=== PATIENT | female | born 1960 | race Caucasian/White ===

== ENCOUNTER 2016-12-30 11:01 | Day surgery (SDC) | payer MEDICARE ==
[~2016-12-30] VITALS: Ht 165.1 cm; Wt 81.6 kg
[~2016-12-30 11:01] MED LIST: COZAAR100 MG PO; ENULOSE10 G/15 ML PO; GLUCOPHAGE500 MG PO; HUMALOG MIX 75/23 ML SC; LASIX40 MG PO; NEURONTIN 300300 MG PO; POTASSIUM CHLO10 ME1 PO; PRILOSEC20 MG PO; TOPROL XL25 MG PO; XIFAXAN550 MG PO; ZOCOR40 MG PO; ZOLOFT25 MG PO
[2016-12-30 12:22] LABS: BASOPHILS 0.4 % (0.0-2.0); EOSINOPHILS 1.8 % (0-7); HEMATOCRIT 35.2 % (36.0-48.0); HEMOGLOBIN 11.7 g/dL (12-16); IMMATURE GRANULOCYTES 0.1 % (0-5); LYMPHOCYTES 21.4 % (15-50); MCH 28.4 pg (26.0-34.0); MCHC 33.2 g/dL (31.0-37.0); MCV 85.4 fL (80.0-100.0); MEAN PLATELET VOLUME 12.1 fL (7.4-10.4); MONOCYTES 6.6 % (2-11); NEUTROPHILS 69.7 % (40-80); RBC 4.12 10x6/uL (4.00-5.40); RDW 13.5 % (11.5-14.5); WBC 6.7 10x3/uL (4.8-10.8)
[2016-12-30] MEDS ORDERED: LEVEMIR100 U/M1 SQ (12:23)
[2016-12-30 12:35] VITALS: BP 187/91; Ht 165.1 cm; Wt 81.6 kg
[2016-12-30 12:39] LABS: PLATELET COUNT 85 10x3/uL (130-400)
[2016-12-30 12:40] LABS: APTT 27.6 SECONDS (22.8-39.4); INR 1.21 (0.85-1.17); PROTIME 15.2 SECONDS (11.6-15.0)
[2016-12-30 12:48] LABS: ALKALINE PHOSPHATASE 143 U/L (46-116); ALT (SGPT) 16 U/L (10-68); BILIRUBIN - TOTAL 1.57 mg/dL (0.2-1.3); CALC OSMOLALITY 281 mosm/kg (275-300); CALCIUM 8.6 mg/dL (8.5-10.1); CARBON DIOXIDE 22.9 mmol/L (21.0-32.0); CHLORIDE - SERUM 105 mmol/L (98-107); CREATININE - SERUM 0.8 mg/dL (0.6-1.3); POTASSIUM - SERUM 3.8 mmol/L (3.5-5.1); PROTEIN - SERUM 7.4 g/dL (6.4-8.2); SODIUM 140 mmol/L (136-145); UREA NITROGEN 15 mg/dL (7-18); eGFR NON AFRICAN AMERICAN 79 mL/min (90-120)
[2016-12-30 12:51] LABS: GLUCOSE 143 mg/dL (74-106)
[2016-12-30 13:16] LABS: PLATELET ESTIMATE DECREASED
--- NOTE | 2016-12-30 16:28 | NUR ---
1425 DC INSTS REVIEWED. VOICED UNDERSTANDING, RELEASED IN OWN WC.
--- NOTE | 2017-01-05 10:15 | OP ---
PATIENT NAME: NILDA LIRA MEDICAL RECORD: [id number] :62 LOCATION:[facility] ADMISSION DATE: SURGEON: JAYNE AVITIA DO DATE OF OPERATION: 12/30/2016 PROCEDURE: EGD with variceal band ligation. SCOPE: Olympus video gastroscope. MEDICATIONS: Propofol 300 mg IV per anesthesia. INDICATIONS FOR PROCEDURE: Dysphagia and gastroesophageal reflux disease. FINDINGS: Informed consent was given. The patient was made comfortable with the above medication. After reaching an adequate level of sedation by slow IV push, the patient was placed on her left side. The endoscope was then advanced under direct visualization through the mouth to the second portion of the duodenum. The upper esophagus appeared normal. There were grade III to IV esophageal varices present in the middle and distal third of the esophagus in segmented columns. Scope was advanced down into the stomach and retroflexed to view the cardia which appeared normal. There were no visualized varices within the fundus of the stomach. There was a single benign appearing fundic gland gastric polyp present in the fundus of the stomach. Scope was advanced down to the antrum and prepyloric region where the mucosa appeared normal. It was advanced into the bulb and second portion of the duodenum which appeared normal. The scope was then withdrawn and fitted a with a speed rocket scientist made by [employer]. The scope was advanced back down to the varices and 3 band ligation were performed successfully. The scope was then withdrawn from the patient. The patient tolerated the procedure well and there were no complications. IMPRESSION: 1. Grade III to IV esophageal varices, banded times 3. 2. Benign fundic gland polyps was seen. PLAN AND RECOMMENDATIONS: 1. Discharge home when recovering parameters are met. 2. Continue omeprazole, but increased to 40 mg daily. 3. Low sodium diet. 4. Repeat EGD in 4-6 weeks for continued treatment of esophageal varices, I feel that this is the cause of her dysphagia and should be treated until irradiation. TRANSINT:[id number] Voice Confirmation ID: [id number] DOCUMENT ID: [id number] JAYNE AVITIA DO at 1015 CC: [id number] DICTATION DATE: 12/30/16 1430 HERD TESTER: 12/30/164 [facility] 12/30/16 [facility] [address] [place] [address]
== END 2016-12-30 16:25 | disposition home or self-care (01) ==
LOC: D.OPS 11:01
PROVIDERS: Anesthesiology
DX: I85.00 Esophageal varices without bleeding (principal); R13.10 Dysphagia, unspecified; K21.9 Gastro-esophageal reflux disease without esophagitis

== ENCOUNTER → 2017-01-06 11:11 | Outpatient (CLI) | payer MEDICARE ==
[2016-12-30 12:35] VITALS: BMI 21.6
[~2017-01-06 11:11] MED LIST changes: +LEVEMIR100 U/M1 SQ
== END | disposition home or self-care (01) ==
LOC: D.NM 11:11
DX: R10.13 Epigastric pain (principal); R68.81 Early satiety; R14.0 Abdominal distension (gaseous)

== ENCOUNTER 2017-01-28 08:22 | Day surgery (SDC) | payer MEDICARE ==
[2017-01-28 10:01] LABS: ANION GAP 13.2 mmol/L (8-16); CALCIUM 8.9 mg/dL (8.5-10.1); CARBON DIOXIDE 27.7 mmol/L (21.0-32.0); CREATININE - SERUM 0.9 mg/dL (0.6-1.3); POTASSIUM - SERUM 3.9 mmol/L (3.5-5.1)
[2017-01-28 12:27] LABS: BASOPHILS 0.5 % (0-2); EOSINOPHILS 1.8 % (0-7); HEMATOCRIT 35.9 % (36.0-48.0); HEMOGLOBIN 11.5 g/dL (12-16); IMMATURE GRANULOCYTES 0.3 % (0-5); MCH 28.5 pg (26.0-34.0); MCV 89.1 fL (80.0-100.0); MONOCYTES 9.1 % (2-11); NEUTROPHILS 69.3 % (40-80); PLATELET COUNT 97 10x3/uL (130-400); RBC 4.03 10x6/uL (4.00-5.40); WBC 6.5 10x3/uL (4.8-10.8)
[2017-01-28 12:48] LABS: PLATELET ESTIMATE DECREASED
== END 2017-01-28 12:45 | disposition home or self-care (01) ==
LOC: D.OPS 08:22
PROVIDERS: Anesthesiology
DX: D12.4 Benign neoplasm of descending colon (principal); I10 Essential (primary) hypertension; Z95.1 Presence of aortocoronary bypass graft; K21.9 Gastro-esophageal reflux disease without esophagitis; E11.9 Type 2 diabetes mellitus without complications; Z01.812 Encounter for preprocedural laboratory examination

== ENCOUNTER → 2017-02-15 10:25 | Outpatient (CLI) | payer MEDICARE ==
[2017-01-28 09:15] VITALS: BMI 29.1
[2017-02-15 11:31] LABS: BASOPHILS 0.4 % (0-2); EOSINOPHILS 2.5 % (0-7); HEMOGLOBIN 11.4 g/dL (12-16); IMMATURE GRANULOCYTES 0.2 % (0-5); LYMPHOCYTES 22.3 % (15-50); MCH 28.7 pg (26.0-34.0); MCHC 32.6 g/dL (31.0-37.0); MCV 88.2 fL (80.0-100.0); MEAN PLATELET VOLUME 12.5 fL (7.4-10.4); MONOCYTES 7.5 % (2-11); NEUTROPHILS 67.1 % (40-80); PLATELET COUNT 89 10x3/uL (130-400); RBC 3.97 10x6/uL (4.00-5.40); RDW 14.1 % (11.5-14.5); WBC 5.2 10x3/uL (4.8-10.8)
[2017-02-15 11:39] LABS: INR 1.57 (0.85-1.17); PROTIME 18.7 SECONDS (11.6-15.0)
[2017-02-15 11:44] LABS: BILIRUBIN - DIRECT 0.21 mg/dL (0.00-0.30); BILIRUBIN - INDIRECT 0.86 mg/dL (0.00-1.00); BILIRUBIN - TOTAL 1.07 mg/dL (0.2-1.3); PROTEIN - SERUM 7.8 g/dL (6.4-8.2)
== END | disposition home or self-care (01) ==
LOC: D.LAB 08-18 10:30 → D.US 10:25
PROVIDERS: Internal Medicine Gastroenterology
DX: K21.9 Gastro-esophageal reflux disease without esophagitis (principal); K74.60 Unspecified cirrhosis of liver

== ENCOUNTER 2017-02-22 05:45 | Day surgery (SDC) | payer MEDICARE ==
[~2017-02-22] VITALS: Ht 165.1 cm; Wt 81.8 kg
[2017-02-22 07:09] VITALS: BP 169/72; Ht 165.1 cm; Wt 81.8 kg
[2017-02-22 07:42] LABS: ALBUMIN 2.9 g/dL (3.4-5.0); ANION GAP 12.9 mmol/L (8-16); BILIRUBIN - TOTAL 1.53 mg/dL (0.2-1.3); CALCIUM 8.9 mg/dL (8.5-10.1); CARBON DIOXIDE 28.4 mmol/L (21.0-32.0); POTASSIUM - SERUM 4.3 mmol/L (3.5-5.1); PROTEIN - SERUM 7.5 g/dL (6.4-8.2)
[2017-02-22 07:49] LABS: INR 1.2 (0.85-1.17); PROTIME 15.1 SECONDS (11.6-15.0)
[2017-02-22 07:52] LABS: BASOPHILS 0.4 % (0-2); EOSINOPHILS 3.5 % (0-7); HEMATOCRIT 34.9 % (36.0-48.0); HEMOGLOBIN 11.1 g/dL (12-16); IMMATURE GRANULOCYTES 0.2 % (0-5); MCH 28.6 pg (26.0-34.0); MCHC 31.8 g/dL (31.0-37.0); MCV 89.9 fL (80.0-100.0); MEAN PLATELET VOLUME 12.8 fL (7.4-10.4); MONOCYTES 9.7 % (2-11); NEUTROPHILS 62.2 % (40-80); PLATELET COUNT 99 10x3/uL (130-400); RBC 3.88 10x6/uL (4.00-5.40); WBC 5.5 10x3/uL (4.8-10.8)
--- NOTE | 2017-02-22 08:23 | NUR ---
0815-RECD FROM GI LAB. ALERT. RESP WITH EASE. DR AVITIA IN TO SEE PATIENT.
--- NOTE | 2017-02-22 09:31 | NUR ---
0900-IV D/C. 909-DISCHARGE INSTRUCTIONS REVIEWED. UP TO BATHROOM WITH ASSIST, VOIDED AND DRESSED. 919-D/C HOME.
--- NOTE | 2017-02-24 15:57 | OP ---
PATIENT NAME: NILDA LIRA MEDICAL RECORD: [id number] :62 LOCATION:[facility] ADMISSION DATE: SURGEON: JAYNE AVITIA DO DATE OF OPERATION: 02/22/2017 PROCEDURE: EGD. INDICATIONS: Variceal surveillance procedure being performed on 12/30/2016 with banding performed at that time. SCOPE: Olympus video gastroscope. MEDICATIONS: Propofol 125 mg IV per anesthesia. ESTIMATED BLOOD LOSS: None. FINDINGS: Informed consent was given. The patient was made comfortable with the above medication. After reaching an adequate level of sedation by slow IV push, the patient was placed on her left side. The endoscope was then advanced under direct visualization through the mouth to the second portion of the duodenum. The upper and middle thirds of the esophagus appeared normal. In the distal esophagus down to the GE junction, there was evidence of grade II esophageal varices without bleeding stigmata. This was significantly improved from her previous endoscopy where bands were placed. At the GE junction, there was some moderate LA class A reflux induced esophagitis. The endoscope was advanced into the stomach and retroflexed to view the cardia which appeared normal. The scope was then advanced down throughout the body and antrum of the stomach. In the antrum and prepyloric region, there were multiple erosions consistent with medication induced erosions. The endoscope was advanced beyond the pylorus into the duodenum where the bulb and second portion of the duodenum appeared normal. The scope was withdrawn from the patient. The patient tolerated the procedure well and there were no complications. IMPRESSION: 1. Grade II esophageal varices, significantly improved since previous examination with esophageal variceal banding. 2. Reflux esophagitis grade A. 3. Medication-induced gastric erosions. PLAN AND RECOMMENDATIONS: 1. Discharge home when recovery parameters are met. 2. Continue GERD diet and reflux precautions. 3. Continue current PPI at 40 mg daily in the morning. 4. Add Pepcid 40 mg at bedtime. 5. Repeat upper endoscopy in 1 year for variceal surveillance. TRANSINT:[id number] Voice Confirmation ID: [id number] DOCUMENT ID: [id number] OPERATIVE REPORT [id number] NILDA LIRA JAYNE AVITIA DO at 8139 CC: [id number] DICTATION DATE: 02/22/17 0804 NEMATOLOGY TEACHER: 02/22/17 1144 [facility] 02/22/17 [facility] 2600 [facility]901
== END 2017-02-22 09:20 | disposition home or self-care (01) ==
LOC: D.OPS 05:45
PROVIDERS: Anesthesiology
DX: K74.60 Unspecified cirrhosis of liver (principal); I85.10 Secondary esophageal varices without bleeding; K21.0 Gastro-esophageal reflux disease with esophagitis; K72.90 Hepatic failure, unspecified without coma; R13.10 Dysphagia, unspecified; Z86.010 Personal history of colon polyps; Z01.812 Encounter for preprocedural laboratory examination

== ENCOUNTER → 2018-05-09 08:13 | Outpatient (CLI) | payer MEDICARE ==
[2018-05-09 09:05] LABS: BASOPHILS 0.2 % (0-2); EOSINOPHILS 3.3 % (0-7); HEMOGLOBIN 10.2 g/dL (12-16); IMMATURE GRANULOCYTES 0.2 % (0-5); LYMPHOCYTES 23.3 % (15-50); MCH 28.3 pg (26.0-34.0); MCHC 31.9 g/dL (31.0-37.0); MCV 88.6 fL (80.0-100.0); MEAN PLATELET VOLUME 11.7 fL (7.4-10.4); MONOCYTES 8.2 % (2-11); NEUTROPHILS 64.8 % (40-80); PLATELET COUNT 81 10x3/uL (130-400); RBC 3.61 10x6/uL (4.00-5.40); RDW 14.7 % (11.5-14.5); WBC 5.1 10x3/uL (4.8-10.8)
[2018-05-09 09:16] LABS: INR 1.21 (0.85-1.17); PROTIME 14.9 SECONDS (11.6-15.0)
[2018-05-09 09:19] LABS: ALBUMIN 2.7 g/dL (3.4-5.0); BILIRUBIN - DIRECT 0.29 mg/dL (0.00-0.30); BILIRUBIN - INDIRECT 0.85 mg/dL (0.00-1.00); BILIRUBIN - TOTAL 1.14 mg/dL (0.2-1.3); PROTEIN - SERUM 7.2 g/dL (6.4-8.2)
== END | disposition home or self-care (01) ==
LOC: D.US 04-20 09:30 → D.LAB 04-20 10:00 → D.US 08:00
PROVIDERS: Internal Medicine Gastroenterology
DX: K74.60 Unspecified cirrhosis of liver (principal)

== ENCOUNTER → 2018-05-19 08:26 | Outpatient (CLI) | payer MEDICARE | END | disposition home or self-care (01) | LOC: D.MRI 08:26 | DX: R93.8 Abnormal findings on diagnostic imaging of other specified body structures (principal); K83.8 Other specified diseases of biliary tract ==

== ENCOUNTER → 2018-12-19 07:16 | Outpatient (CLI) | payer MEDICARE ==
[2018-12-19 08:19] LABS: INR 1.24 (0.85-1.17)
[2018-12-19 08:27] LABS: ALBUMIN 2.8 g/dL (3.4-5.0); ANION GAP 14.2 mmol/L (8-16); BILIRUBIN - DIRECT 0.23 mg/dL (0.00-0.30); BILIRUBIN - INDIRECT 0.67 mg/dL (0.00-1.00); BILIRUBIN - TOTAL 0.9 mg/dL (0.2-1.3); CALCIUM 8.4 mg/dL (8.5-10.1); CARBON DIOXIDE 23.5 mmol/L (21.0-32.0); POTASSIUM - SERUM 3.7 mmol/L (3.5-5.1); PROTEIN - SERUM 7.4 g/dL (6.4-8.2)
[2018-12-19 08:29] LABS: BASOPHILS 0.4 % (0-2); HEMOGLOBIN 8.3 g/dL (12-16); IMMATURE GRANULOCYTES 0.2 % (0-5); LYMPHOCYTES 20.8 % (15-50); MCH 26.3 pg (26.0-34.0); MCHC 30.7 g/dL (31.0-37.0); MCV 85.7 fL (80.0-100.0); MEAN PLATELET VOLUME 11.6 fL (7.4-10.4); NEUTROPHILS 64.6 % (40-80); PLATELET COUNT 87 10x3/uL (130-400); RBC 3.15 10x6/uL (4.00-5.40); RDW 16.1 % (11.5-14.5); WBC 4.5 10x3/uL (4.8-10.8)
[2018-12-19 10:05] LABS: PLATELET ESTIMATE DECREASED
== END | disposition home or self-care (01) ==
LOC: D.US 07:16
PROVIDERS: ATTEND Internal Medicine Gastroenterology
DX: K74.60 Unspecified cirrhosis of liver (principal)

== ENCOUNTER 2019-01-11 11:00 | Day surgery (SDC) | payer MEDICARE ==
[~2019-01-11] VITALS: Ht 165.1 cm; Wt 95.0 kg
[2019-01-11 11:25] LABS: HEMATOCRIT 25.8 % (36.0-48.0); HEMOGLOBIN 7.9 g/dL (12-16); MCH 25.4 pg (26.0-34.0); MCHC 30.6 g/dL (31.0-37.0); MEAN PLATELET VOLUME 11.6 fL (7.4-10.4); RBC 3.11 10x6/uL (4.00-5.40); RDW 14.9 % (11.5-14.5); WBC 5.4 10x3/uL (4.8-10.8)
[2019-01-11 11:33] LABS: ANION GAP 12.5 mmol/L (8-16); CALCIUM 7.9 mg/dL (8.5-10.1); CARBON DIOXIDE 25.1 mmol/L (21.0-32.0); POTASSIUM - SERUM 3.6 mmol/L (3.5-5.1)
[2019-01-11] MEDS ORDERED: PLAVIX75 MG PO (11:54)
[2019-01-11 12:00] VITALS: BP 127/75; Ht 165.1 cm; Wt 95.0 kg
--- NOTE | 2019-01-11 12:24 | NUR ---
EKG REVEALED A. FIB (CONTROLLED). PT STATES SHE IS UNAWARE OF A. FIB DIAGNOSIS. (PT IS TAKING PLAVIX) I INFORMED DR. IVERSON OF EKG/A. FIB. HE STATED THAT SINCE IT WAS CONTROLLED A. FIB AND THE PROCEDURE WAS SHORT PT SHOULD BE FINE. HE SAID THAT PT NEEDS TO GET IN TOUCH WITH COUNSELING CENTER DIRECTOR REGARDING A. FIB.
--- NOTE | 2019-01-16 08:12 | OP ---
PATIENT NAME: NILDA LIRA MEDICAL RECORD: [id number] :62 LOCATION:[facility] ADMISSION DATE: SURGEON: JAYNE AVITIA DO DATE OF OPERATION: 01/11/2019 PROCEDURE: EGD with band ligation and biopsy. INDICATIONS FOR PROCEDURE: Anemia, dysphagia, GERD, melena, nausea and vomiting, right upper quadrant pain. SCOPE: Olympus video gastroscope. MEDICATIONS: Propofol 180 mg IV per anesthesia. ESTIMATED BLOOD LOSS: Minimal. COMPLICATIONS: None. FINDINGS AND DESCRIPTION OF PROCEDURE: Informed consent was given. The patient was made comfortable with the above medication. After reaching an adequate level of sedation by slow IV push, the patient was placed on her left side. The endoscope was advanced under direct visualization through the mouth to the second portion of the duodenum with ease. The upper and middle thirds of the esophagus appeared normal. In the distal esophagus, there were grade III varices with a single column that had a red deysi stigmata. At the GE junction, there were reflux changes consistent with mild reflux esophagitis. The endoscope was advanced beyond the GE junction into the stomach and retroflexed to view the cardia, which appeared normal. Throughout the entire stomach, there were diffuse changes of congestion and erythema consistent with portal hypertensive gastropathy. In the body of the stomach, there were multiple benign-appearing fundic gland type gastric polyps. A single biopsy was taken of 1 to confirm their benign nature. In the antrum and prepyloric region, there was erythema and granularity as well as a few ulcerations. Random cold forceps biopsies were taken to submit for histopathology and to rule out the presence of H. pylori. The endoscope was advanced beyond the pylorus into the duodenum, which appeared normal to the second portion. The endoscope was withdrawn from the patient and fitted with a [employer] speed mirror painter. The endoscope was advanced back down to the distal esophagus through the mouth where the varices were again encountered. The single, largest column was selected and a band was placed over this vessel successfully. There was no significant bleeding. The endoscope was withdrawn from the patient. The patient tolerated the procedure well and there were no complications. IMPRESSIONS: 1. Grade III esophageal varices status post banding times 1. 2. Reflux esophagitis. 3. Portal hypertension gastropathy. 4. Few benign-appearing gastric polyps. 5. Gastritis. 6. Portal hypertensive duodenopathy. PLAN AND RECOMMENDATIONS: 1. Discharge home when recovery parameters are met. 2. Follow up biopsy specimen results. 3. GERD diet and reflux precautions. OPERATIVE REPORT [id number] NILDA LIRA 4. Initiate PPI therapy 40 mg daily times 60 days with the melena, gastritis, gastric ulcers, and recent banding. 5. Repeat EGD in 4-6 weeks for repeat banding as indicated. TRANSINT:[id number] Voice Confirmation ID: [id number] DOCUMENT ID: [id number] JAYNE AVITIA DO at 0812 CC: [id number] DICTATION DATE: 01/11/19 1339 TELLER MANAGER: 01/11/19 1536 [facility] 01/11/19 [id number] [place] [address]
== END 2019-01-11 15:05 | disposition home or self-care (01) ==
LOC: D.OPS 11:00
PROVIDERS: Anesthesiology; ATTEND Internal Medicine Gastroenterology
DX: I85.00 Esophageal varices without bleeding (principal); K21.0 Gastro-esophageal reflux disease with esophagitis; K76.6 Portal hypertension; K31.89 Other diseases of stomach and duodenum; K31.7 Polyp of stomach and duodenum; K29.70 Gastritis, unspecified, without bleeding; D64.9 Anemia, unspecified; Z01.812 Encounter for preprocedural laboratory examination

== ENCOUNTER → 2019-10-23 09:28 | Outpatient (CLI) | payer MEDICARE ==
[2019-01-11 12:00] VITALS: BMI 34.8
[~2019-10-23 09:28] MED LIST changes: +PLAVIX75 MG PO
[2019-10-23 10:55] LABS: INR 1.24 (0.85-1.17); PROTIME 15.5 SECONDS (11.6-15.0)
[2019-10-23 11:03] LABS: ALBUMIN 2.8 g/dL (3.4-5.0); ANION GAP 13.2 mmol/L (8-16); BILIRUBIN - DIRECT 0.23 mg/dL (0.00-0.30); BILIRUBIN - INDIRECT 0.66 mg/dL (0.00-1.00); BILIRUBIN - TOTAL 0.89 mg/dL (0.2-1.3); CALCIUM 8.5 mg/dL (8.5-10.1); CARBON DIOXIDE 26.2 mmol/L (21.0-32.0); CREATININE - SERUM 1.3 mg/dL (0.6-1.3); POTASSIUM - SERUM 4.4 mmol/L (3.5-5.1); PROTEIN - SERUM 7.8 g/dL (6.4-8.2)
[2019-10-23 11:53] LABS: BASOPHILS 0.3 % (0-2); EOSINOPHILS 3.1 % (0-7); HEMATOCRIT 29.7 % (36.0-48.0); HEMOGLOBIN 8.9 g/dL (12-16); LYMPHOCYTES 23.1 % (15-50); MCH 25.2 pg (26.0-34.0); MCV 84.1 fL (80.0-100.0); MEAN PLATELET VOLUME 11.9 fL (7.4-10.4); MONOCYTES 8.3 % (2-11); NEUTROPHILS 65.2 % (40-80); PLATELET COUNT 117 10x3/uL (130-400); RBC 3.53 10x6/uL (4.00-5.40); RDW 17.2 % (11.5-14.5); WBC 3.9 10x3/uL (4.8-10.8)
== END | disposition home or self-care (01) ==
LOC: D.US 09:28
PROVIDERS: ATTEND Internal Medicine Gastroenterology
DX: K74.60 Unspecified cirrhosis of liver (principal)